=== PATIENT | male | born 1955 | race Caucasian/White ===

== ENCOUNTER → 2016-11-24 | Outpatient (CLI) | payer BC, OTHER | END | disposition home or self-care (01) | LOC: C.LABMFLN 09:53 | PROVIDERS: ATTEND Family Medicine | DX: J11.1 Influenza due to unidentified influenza virus with other respiratory manifestations (principal) ==

== ENCOUNTER → 2017-04-14 | Outpatient (CLI) | payer OTHER ==
[2017-04-14 13:49] LABS: ALT/SGPT 34 U/L (12-78); BLOOD UREA NITROGEN 18 mg/dl (7-18); BUN/CREATININE RATIO 17.8 (10-20); CARBON DIOXIDE 31 mmol/L (21-32); CHLORIDE 105 mmol/L (98-107); CHOLESTEROL 205 mg/dl (0-200); GLUCOSE 86 mg/dl (70-99); POTASSIUM 3.8 mmol/L (3.5-5.1); PROSTATE SPECIFIC ANTIGEN 0.868 ng/ml (0.000-4.000); SODIUM 142 mmol/L (136-145); TRIGLYCERIDES 79 mg/dl (0-150); VERY LOW DENSITY LIPOPROT CALC 16 mg/dl
[2017-04-14 13:53] LABS: HDL CHOLESTEROL 51 mg/dl; LDL CHOLESTEROL CALCULATED 138 mg/dl
== END | disposition home or self-care (01) ==
LOC: C.LABMFLN 10:22
PROVIDERS: ATTEND Family Medicine
DX: Z13.220 Encounter for screening for lipoid disorders (principal); Z13.1 Encounter for screening for diabetes mellitus; Z12.5 Encounter for screening for malignant neoplasm of prostate

== ENCOUNTER → 2017-11-18 | Outpatient (CLI) | payer OTHER ==
[~2017-11-18] MED LIST: CLOR7.5T14 PO; MULT-1027 PO; PRLSR20 PO; SUCR5SUS PO
[2017-11-18 17:40] LABS: HEMATOCRIT 46.8 % (42-52); HEMOGLOBIN 17.1 g/dL (14.0-18.0); MEAN CELL VOLUME 90.2 fL (80-100); MEAN CORPUSCULAR HEMOGLOBIN 32.9 pg (25-34); MEAN CORPUSCULAR HGB CONC 36.5 g/dl (32-36); MEAN PLATELET VOLUME 9.5 fL (7.4-10.4); PLATELET COUNT 212 K/uL (130-400); RED CELL DISTRIBUTION WIDTH CV 13.3 % (11.5-14.5); RED CELL DISTRIBUTION WIDTH SD 43.5 fL (36.4-46.3); WHITE BLOOD COUNT 6.26 K/uL (4.8-10.8)
[2017-11-18 18:10] LABS: ALT/SGPT 23 U/L (12-78); AST/SGOT 13 U/L (15-37); BLOOD UREA NITROGEN 11 mg/dl (7-18); CALCIUM 8.7 mg/dl (8.5-10.1); CARBON DIOXIDE 28 mmol/L (21-32); CREATININE 0.98 mg/dl (0.60-1.40); GLUCOSE 94 mg/dl (70-99); POTASSIUM 4.4 mmol/L (3.5-5.1); SODIUM 139 mmol/L (136-145)
[2017-11-18 18:12] LABS: ALKALINE PHOSPHATASE 99 U/L (45-117); TOTAL PROTEIN 7.4 gm/dl (6.4-8.2)
== END | disposition home or self-care (01) ==
LOC: C.LABMFLN 15:01
PROVIDERS: ATTEND Family Medicine
DX: K29.00 Acute gastritis without bleeding (principal)

== ENCOUNTER → 2017-11-30 | Day surgery (SDC) | payer OTHER ==
[~2017-11-30] VITALS: Ht 172.7 cm; Wt 70.5 kg
[~2017-11-30] MED LIST changes: +LIDOCAINE HCL 2% 2 ML VIAL (20MG/ML) ONE; +PROPOFOL IV EMULSION 10 MG/ML 20 ML VIAL IV ONE; +SODIUM CHLORIDE 0.9% 500ML 500 ML IV ONE
[2017-11-30 08:31] VITALS: Ht 172.7 cm; Wt 70.5 kg
--- NOTE | 2017-11-30 08:50 | Endo History and Physical ---
History & Physical Date of Service: Nov 30, 2017. Chief Complaint: Gastritis Referring Physician: Dr. Otoniel Mccullough History of Present Illness 62 yo CF who presents for EGD secondary to gastritis. Past Medical History Arthritis, Anxiety, Reflux, Depression Past Surgical History Hx Cardiac Surgery: No Hx Internal Defibrillator: No Hx Pacemaker: No Hx Abdominal Surgery: Yes (APPENDECTOMY) Hx of Implantable Prosthesis: No Hx Post-Op Nausea and Vomiting: No Hx Cancer Surgery: No Hx Thoracic Surgery: No Hx Orthopedic: No Hx Urinary Tract Surgery: No Family History Esophogeal CA Social History Smoking Status: Former Smoker Hx Substance Use: Yes (TRANXENE) Hx Alcohol Use: No Allergies Coded Allergies: Barium-containing Compounds (Verified Allergy, Intermediate, Hives, ) Current Medications Reported Home Medications Medications Dose Route/Sig Max Daily Dose Days Date Category Multi Vitamin (Multiple Vitamin) 1 Tab Tab 1 Tab PO DAILY 11/25/17 Reported Tranxene-T (Clorazepate Dipotassium) 7.5 Mg Tab 15 Mg PO DAILY PRN 11/25/17 Reported Carafate (Sucralfate) 1 Gm/10 Ml Susp 10 Ml PO QID 11/25/17 Reported Prilosec (Omeprazole) 20 Mg Capcr 40 Mg PO DAILY 11/25/17 Reported Vital Signs Weight (Kilograms): 70.5 Height (Feet): 5 Height (Inches): 8 Date Time Temp Pulse Resp B/P (MAP) Pulse Ox O2 Delivery O2 Flow Rate FiO2 11/30/17 08:30 36.3 75 18 144/98 (113) 98 Room Air Physical Exam General Appearance: WD/WN, no apparent distress Respiratory/Chest: Auscultation: breath sounds normal Cardiovascular: Heart Auscultation: RRR Abdomen: Bowel Sounds: normal Inspection & Palpation: soft, non-distended, no tenderness, guarding & rebound Assessment and Plan Assessment: 62 yo CF who presents for EGD secondary to gastritis. Plan: Proceed with EGD.
--- NOTE | 2017-11-30 09:41 | Discharge Instructions ---
Endoscopy Patient Instructions Date / Procedure(s) Performed Nov 30, 2017. EGD Allergy Information Coded Allergies: Barium-containing Compounds (Verified Allergy, Intermediate, Hives, ) Discharge Date / Findings Nov 30, 2017. Gastric antrum biopsies Distal esophageal biopsies Medication Instructions OK to resume all medications today as prescribed Reported Home Medications Medications Dose Route/Sig Max Daily Dose Days Date Category Multi Vitamin (Multiple Vitamin) 1 Tab Tab 1 Tab PO DAILY 11/25/17 Reported Tranxene-T (Clorazepate Dipotassium) 7.5 Mg Tab 15 Mg PO DAILY PRN 11/25/17 Reported Carafate (Sucralfate) 1 Gm/10 Ml Susp 10 Ml PO QID 11/25/17 Reported Prilosec (Omeprazole) 20 Mg Capcr 40 Mg PO DAILY 11/25/17 Reported Provider Instructions Activity Restrictions - No exercising or heavy lifting for 24 hours. - Do not drink alcohol the day of the procedure. - Do not drive a car or operate machinery until the day after the procedure. - Do not make any important decisions or sign important papers in 24 hours after the procedure. Following Day: - Return to full activity which may include returning to work/school. Diet Start your diet with liquids and light foods (jello, soup, juice, toast). Then eat your usual diet if not nauseated. Treatment For Common After Affects For mild abdominal pain, bloating, or excessive gas: - Rest - Eat lightly - Lie on right side Follow-Up Information Follow-up with DR KENDRA GARCIA as scheduled Anesthesia Information What You Should Know You have had a procedure that required some medicine to reduce anxiety and discomfort. This treatment is called moderate sedation. After receiving the treatment, you may be sleepy, but you will be able to breathe on your own. The effects of the treatment may last for several hours. Follow these instructions along with Activity/Diet recommendations noted above: * Do NOT do anything where dizziness or clumsiness would be dangerous. * Rest quietly at home today, then you can be up and about tomorrow. * Have a responsible person stay with you the rest of today. * You may have had an I.V. today. If so, you may take the dressing off later today. Recommendations Call your doctor if: * Trouble breathing * Continuous vomiting for more than 24 hours * Temperature above 101 degrees * Severe abdominal pain or bloating * Pain not relieved by pain medicine ordered * There is increased drainage or redness from any incision * A large amount of rectal bleeding greater than 2-3 tablespoons. (If you had a polyp/s removed or have hemorrhoids, a small amount of blood - from the rectum is to be expected.) * You have any unanswered questions or concerns. IN THE EVENT OF A SERIOUS EMERGENCY, GO TO THE NEAREST EMERGENCY ROOM Your discharge instructions were prepared by provider Rhys Nava. Patient Instructions Signature Page Raymond Little Patient (or Guardian) Signature/Date: I have read and understand the instructions given to me by my caregivers. Caregiver/RN/Doctor Signature/Date: The above-named patient and/or guardian has received patient instructions on this date. + Original Patient Signature Page (only) stays with chart. Please make copy for patient.
--- NOTE | 2017-11-30 09:54 | GI REPORT ---
Procedure Date: 11/30/2017 8:56 AM Procedure: Upper GI endoscopy Indications: Suspected acute gastritis Medicines: Monitored Anesthesia Care Complications: No immediate complications. Estimated Blood Loss: Estimated blood loss: none. Procedure: Pre-Anesthesia Assessment: - Prior to the procedure, a History and Physical was performed, and patient medications and allergies were reviewed. The patient's tolerance of previous anesthesia was also reviewed. The risks and benefits of the procedure and the sedation options and risks were discussed with the patient. All questions were answered, and informed consent was obtained. Prior Anticoagulants: The patient has taken no previous anticoagulant or antiplatelet agents. ASA Grade Assessment: I - A normal, healthy patient. After reviewing the risks and benefits, the patient was deemed in satisfactory condition to undergo the procedure. After obtaining informed consent, the endoscope was passed under direct vision. Throughout the procedure, the patient's blood pressure, pulse, and oxygen saturations were monitored continuously. The scope was introduced through the mouth, and advanced to the second part of duodenum. The upper GI endoscopy was accomplished without difficulty. The patient tolerated the procedure well. Findings: The Z-line was irregular. Biopsies were taken with a cold forceps for histology. The entire examined stomach was normal. Biopsies were taken with a cold forceps for Helicobacter pylori testing. The examined duodenum was normal. Impression: - Z-line irregular. Biopsied. - Normal stomach. Biopsied. - Normal examined duodenum. Recommendation: - Resume previous diet. - Continue present medications. - Await pathology results. - Return to primary care physician as previously scheduled. Rhys Nava DO 11/30/2017 9:53:52 AM This report has been signed electronically. Note Initiated On: 11/30/2017 8:56 AM I attest to the content of the Intraoperative Record and orders documented therein, exceptions below
[2017-11-30 10:13] VITALS: BP 117/82; PULSE 67; O2SAT 96
--- NOTE | 2017-11-30 10:34 | Anesthesiology Progress Note ---
Anesthesia Post Op Note Date & Time Nov 30, 2017 at 10:34 Vital Signs Pain Intensity: 0 Vital Signs Past 12 Hours Date Time Temp Pulse Resp B/P (MAP) Pulse Ox O2 Delivery O2 Flow Rate FiO2 11/30/17 10:13 67 18 117/82 (94) 96 Room Air 11/30/17 09:58 74 18 91/57 (68) 96 Room Air 11/30/17 09:42 36.6 72 18 93/55 (68) 95 Room Air 11/30/17 08:30 36.3 75 18 144/98 (113) 98 Room Air Notes Mental Status: alert / awake / arousable, participated in evaluation Pt Amnestic to Procedure: Yes Nausea / Vomiting: adequately controlled Pain: adequately controlled Airway Patency, RR, SpO2: stable & adequate BP & HR: stable & adequate Hydration State: stable & adequate Anesthetic Complications: no major complications apparent
== END | disposition home or self-care (01) ==
LOC: C.GI 08:09
PROVIDERS: ATTEND Internal Medicine
DX: K29.70 Gastritis, unspecified, without bleeding (principal); K20.9 Esophagitis, unspecified; Z90.49 Acquired absence of other specified parts of digestive tract; Z87.891 Personal history of nicotine dependence; Z80.0 Family history of malignant neoplasm of digestive organs

== ENCOUNTER 2018-04-25 23:33 | Emergency (ER) | payer OTHER ==
[~2018-04-25] VITALS: Ht 172.7 cm; Wt 71.5 kg
[~2018-04-25 23:33] MED LIST changes: -LIDOCAINE HCL 2% 2 ML VIAL (20MG/ML) ONE; +LUTE20TA PO; -PRLSR20 PO; -PROPOFOL IV EMULSION 10 MG/ML 20 ML VIAL IV ONE; +RANI150T85 PO; -SODIUM CHLORIDE 0.9% 500ML 500 ML IV ONE; -SUCR5SUS PO
[2018-04-25 23:40] VITALS: TEMP 36.7; Ht 172.7 cm; Wt 71.5 kg
[2018-04-26] MEDS ORDERED: KETOROLAC TROMETHAMINE 30 MG/ML VIAL IV STA (00:04)
[2018-04-26] MEDS ORDERED: SODIUM CHLORIDE 0.9% 1000ML 1,000 ML IV ONE (00:15)
[2018-04-26 00:18] LABS: BASO % 0.4 %; BASO ABS # 0.03 K/uL (0-0.2); EOS % 1.8 %; EOS ABS # 0.14 K/uL (0-0.5); HEMATOCRIT 48.5 % (42-52); HEMOGLOBIN 17.2 g/dL (14.0-18.0); IG# 0.05 K/uL (0.00-0.02); LYMPH % 35.2 %; LYMPH ABS # 2.81 K/uL (1.2-3.4); MEAN CELL VOLUME 90.7 fL (80-100); MEAN CORPUSCULAR HEMOGLOBIN 32.1 pg (25-34); MEAN CORPUSCULAR HGB CONC 35.5 g/dl (32-36); MEAN PLATELET VOLUME 9.1 fL (7.4-10.4); MONO % 8.1 %; MONO ABS # 0.65 K/uL (0.11-0.59); NEUT % 53.9 %; NEUT ABS # 4.31 K/uL (1.4-6.5); PLATELET COUNT 212 K/uL (130-400); RED CELL DISTRIBUTION WIDTH CV 13.4 % (11.5-14.5); RED CELL DISTRIBUTION WIDTH SD 43.8 fL (36.4-46.3); WHITE BLOOD COUNT 7.99 K/uL (4.8-10.8)
[2018-04-26] MEDS ORDERED: DICL50TA3 PO (00:22)
[2018-04-26 00:28] LABS: ALBUMIN 4.2 gm/dl (3.4-5.0); CALCIUM 8.5 mg/dl (8.5-10.1); CREATININE 0.99 mg/dl (0.60-1.40); POTASSIUM 3.7 mmol/L (3.5-5.1); TOTAL PROTEIN 7.5 gm/dl (6.4-8.2)
[2018-04-26 01:51] VITALS: BP 116/74; PULSE 79; O2SAT 97
--- NOTE | 2018-04-26 05:16 | EMERGENCY ROOM VISIT NOTE ---
History First contact with patient: 23:47 Chief Complaint: FLANK PAIN Stated Complaint: RT BACK PAIN,STOMACH PAIN,NAUSEA History of Present Illness The patient is a 62 year old male who presents to the Emergency Room with complaints of right upper quadrant abdominal pain for the past 4-5 weeks. The patient states the pain is intermittent in nature and does not appear to be improve or worsen with time of day or food. The patient does have a history of gastritis, but this feels different from that. He has not had fever or chills. He has been able to eat and drink as normal, although sometimes he does have some postprandial nausea. He is going to the bathroom as normal. His discomfort has been slowly increasing in severity over the past few weeks, and he states that he has a primary care physician appointment scheduled in 9 hours from now. He rates his current discomfort a 6/10. Review of Systems More than 10 systems were reviewed and otherwise negative with the exception of history of present illness. Past Medical/Surgical History Medical Problems: (1) Anxiety disorder (2) Arthritis (3) Depression (4) Gastroesophageal reflux (5) History of L4-5 microdiscectomy Surgical Problems: (1) History of appendectomy Family History No pertinent family history Social History Smoking Status: Former Smoker Marital Status: Occupation Status: disabled Current/Historical Medications Scheduled Lutein (Lutein), 20 MG PO DAILY Multiple Vitamin (Multi Vitamin), 1 TAB PO DAILY Scheduled PRN Clorazepate Dipotassium (Tranxene-T), 15 MG PO DAILY PRN for Anxiety Diclofenac (Voltaren), Unknown Dose PO DIRECTED PRN for Pain Physical Exam Vital Signs Date Time Temp Pulse Resp B/P (MAP) Pulse Ox O2 Delivery O2 Flow Rate FiO2 04/26/18 01:51 79 16 116/74 97 04/26/18 01:08 80 16 114/70 97 Room Air 04/25/18 23:40 36.7 80 18 163/106 97 Room Air Physical Exam VITALS: Vitals are noted on the nurse's note and reviewed by myself. Vital signs stable. GENERAL: Well-developed, well-nourished, white male, who is in no acute distress and resting comfortably. Patient is cooperative with the examination. EYES: Pupils equal round and reactive to light and accommodation. Conjunctivae without injection, sclerae without icterus. Extraocular movements intact. NECK: Supple without nuchal rigidity. No lymphadenopathy. No thyromegaly. Cervical spine is nontender. HEART: Regular rate and rhythm without murmurs gallops or rubs. LUNGS: Clear to auscultation bilaterally without wheezes, rales or rhonchi. No retractions or accessory muscle use. ABDOMEN: Positive normal bowel sounds x 4. Soft, nontender, without masses or organomegaly. No guarding or rebound tenderness. Medical Decision & Procedures ER Provider Diagnostic Interpretation: Preliminary Findings Only See Final Report For Complete Findings US RUQ: The gallbladder is partially contracted. No gallstones. No evidence of GB wall thickening or pericholecystic fluid. No biliary dilatation. Liver, right kidney unremarkable. The portal vein is unremarkable. No free fluid. The pancreas is obscured by bowel gas pattern. Laboratory Results 04/26/18 00:02 Red Blood Count 5.35, Mean Corpuscular Volume 90.7, Mean Corpuscular Hemoglobin 32.1, Mean Corpuscular Hemoglobin Concent 35.5, Mean Platelet Volume 9.1, Neutrophils (%) (Auto) 53.9, Lymphocytes (%) (Auto) 35.2, Monocytes (%) (Auto) 8.1, Eosinophils (%) (Auto) 1.8, Basophils (%) (Auto) 0.4, Neutrophils # (Auto) 4.31, Lymphocytes # (Auto) 2.81, Monocytes # (Auto) 0.65, Eosinophils # (Auto) 0.14, Basophils # (Auto) 0.03 04/26/18 00:02 Test 04/25/18 23:55 04/26/18 00:02 Urine Color YELLOW Urine Appearance CLEAR (CLEAR) Urine pH 5.5 (4.5-7.5) Urine Specific [place] 1.003 (1.000-1.030) Urine Protein NEG (NEG) Urine Glucose (UA) NEG (NEG) Urine Ketones NEG (NEG) Urine Occult Blood NEG (NEG) Urine Nitrite NEG (NEG) Urine Bilirubin NEG (NEG) Urine Urobilinogen NEG (NEG) Urine Leukocyte Esterase NEG (NEG) White Blood Count 7.99 K/uL (4.8-10.8) Red Blood Count 5.35 M/uL (4.7-6.1) Hemoglobin 17.2 g/dL (14.0-18.0) Hematocrit 48.5 % (42-52) Mean Corpuscular Volume 90.7 fL (80-100) Mean Corpuscular Hemoglobin 32.1 pg (25-34) Mean Corpuscular Hemoglobin Concent 35.5 g/dl (32-36) Platelet Count 212 K/uL (130-400) Mean Platelet Volume 9.1 fL (7.4-10.4) Neutrophils (%) (Auto) 53.9 % Lymphocytes (%) (Auto) 35.2 % Monocytes (%) (Auto) 8.1 % Eosinophils (%) (Auto) 1.8 % Basophils (%) (Auto) 0.4 % Neutrophils # (Auto) 4.31 K/uL (1.4-6.5) Lymphocytes # (Auto) 2.81 K/uL (1.2-3.4) Monocytes # (Auto) 0.65 K/uL (0.11-0.59) Eosinophils # (Auto) 0.14 K/uL (0-0.5) Basophils # (Auto) 0.03 K/uL (0-0.2) RDW Standard Deviation 43.8 fL (36.4-46.3) RDW Coefficient of Variation 13.4 % (11.5-14.5) Immature Granulocyte % (Auto) 0.6 % Immature Granulocyte # (Auto) 0.05 K/uL (0.00-0.02) Anion Gap 7.0 mmol/L (3-11) Est Creatinine Clear Calc Drug Dose 76.7 ml/min Estimated GFR () 95.5 Estimated GFR (Non- 82.4 BUN/Creatinine Ratio 9.6 (10-20) Calcium Level 8.5 mg/dl (8.5-10.1) Total Bilirubin 1.5 mg/dl (0.2-1) Aspartate Amino Transf (AST/SGOT) 18 U/L (15-37) Alanine Aminotransferase (ALT/SGPT) 35 U/L (12-78) Alkaline Phosphatase 94 U/L (45-117) Total Protein 7.5 gm/dl (6.4-8.2) Albumin 4.2 gm/dl (3.4-5.0) Globulin 3.3 gm/dl (2.5-4.0) Albumin/Globulin Ratio 1.3 (0.9-2) Amylase Level 70 U/L (25-115) Lipase 124 U/L (73-393) Medications Administered Medications (Trade) Dose Ordered Sig/Ramon Route Start Time Stop Time Status Last Admin Dose Admin Sodium Chloride 1,000 ml @ 999 mls/hr Q1H1M ONCE IV 04/26/18 00:15 04/26/18 01:15 DC 04/26/18 00:14 999 MLS/HR Ketorolac Tromethamine (Toradol Inj) 30 mg NOW STAT IV 04/26/18 00:04 04/26/18 00:06 DC 04/26/18 00:14 30 MG ED Course Physical exam and history were performed. Nursing notes, EMR, and Medication List were personally reviewed. Patient appears to have intermittent right upper quadrant abdominal pain. The patient does not appear toxic on examination, and he has no reproducible tenderness in this area. IV access was established and labs were obtained. The patient was hydrated and medicated as above. Ultrasound was performed. The patient's blood work is as above and was reviewed. He does not have a significantly elevated white blood cell count, gross anemia, bandemia, or significant electrolyte imbalance. Lipase and transaminases are not diagnostic. Ultrasound is as above and does not reveal biliary or other distinct etiology to describe the patient's symptoms. On reevaluation the patient continues to be very comfortable. His abdomen remains soft on repeat exam, and he certainly does not seem to have an acute surgical abdomen. I discussed options of care with the patient. He certainly could have biliary colic, and may do well with an outpatient HIDA scan. The patient does have an appointment with his primary care physician in a few hours. I recommend that he keep that appointment for further care and management. He was otherwise invited back to the ER with any new, worsening, or concerning symptoms. The chart was completed utilizing [employer] Speech Voice Recognition Software. Grammatical errors, random word insertions, pronoun errors, and incomplete sentences are an occasional consequence of this system due to software limitations, ambient noise, and hardware issues. Any formal questions or concerns about the content, text, or information contained within the body of this dictation should be directly addressed to the provider for clarification. . Medical Decision Differential diagnosis: Etiologies such as appendicitis, diverticulitis, PUD, biliary pathology, UTI, pancreatitis, obstruction, mesenteric ischemia, aortic pathology, infections, inflammatory bowel disease, renal colic, as well as others were entertained. Impression Primary Impression: Colicky RUQ abdominal pain Departure Information Dispostion Home / Self-Care Condition GOOD Forms HOME CARE DOCUMENTATION FORM, IMPORTANT VISIT INFORMATION Patient Instructions My [facility] Additional Instructions You were seen and evaluated today on an emergency basis only. This is not a substitute for, or an effort to provide, complete comprehensive medical care. It is not possible to recognize and treat all injuries or illnesses in a single emergency department visit. For this reason it is recommended that you followup with your primary care physician as scheduled for ongoing care and evaluation. Blood work and right upper quadrant ultrasound performed today in the ER do not show acute findings to explain your symptoms. You may want to consider out patient HIDA scan if symptoms persist. Discussed this with your primary care physician. Drink plenty fluids and remain well-hydrated. You are welcome to return to the emergency department anytime with new, worsening, or concerning symptoms.
--- NOTE | 2018-04-26 07:02 | DIAGNOSTIC IMAGING REPORT ---
ULTRASOUND RIGHT UPPER QUADRANT ABDOMEN CLINICAL HISTORY: Right upper quadrant abdominal pain. COMPARISON STUDY: No priors. TECHNIQUE: Real-time, grayscale, and color flow sonography of the right upper quadrant of the abdomen was performed. Images are reviewed in the transverse and longitudinal planes. FINDINGS: Liver: The liver is normal in size and echotexture. There is no intrahepatic biliary ductal dilatation. The main portal vein is patent. Gallbladder: The gallbladder is normal in appearance. No gallstones are identified. There is no gallbladder wall thickening or pericholecystic fluid. A sonographic Talavera's sign could not be assessed as the patient received analgesia. The common bile duct measures up to 0.4 cm in diameter. Pancreas: Visualized portions of the pancreatic head are normal in appearance. The majority of the pancreas was not well visualized due to overlying bowel gas. Right kidney: Survey images of the right kidney demonstrate normal size and echotexture. There is no hydronephrosis. Ascites: None. IMPRESSION: Unremarkable sonographic assessment of the upper quadrant. No gallstones are identified. Electronically signed by: Watson Balderas M.D. 04/26/2018 7:01 AM Dictated Date/Time: 04/26/2018 7:00 AM
== END 2018-04-26 01:51 | disposition home or self-care (01) ==
LOC: C.EDB 23:34 → C.EDC 04-26 01:51
DX: R10.11 Right upper quadrant pain (principal); Z87.19 Personal history of other diseases of the digestive system; Z87.891 Personal history of nicotine dependence

== ENCOUNTER → 2018-05-02 | Outpatient (CLI) | payer OTHER ==
[~2018-05-02] MED LIST changes: +DICL50TA3 PO; -RANI150T85 PO; +SINCALIDE INJ 1.4 MCG in SODIUM CHLORIDE 0.9% 100ML 100 ML IV ONE
--- NOTE | 2018-05-02 10:13 | DIAGNOSTIC IMAGING REPORT ---
HEPATOBILIARY HIDA IMAGING HISTORY: Pain. Nausea. R10.11 Right upper quadrant abdominal pain of unknown etiology COMPARISON: None. TECHNIQUE: Immediately following the intravenous administration of 5.5 mCi Tc-99m Choletec, dynamic anterior abdominal imaging was performed. FINDINGS: Uniform hepatic tracer accumulation is shown. Prompt intrahepatic biliary excretion is seen. The gallbladder, common bile duct, and small bowel are all visualized by 20 minutes. This appearance represents the normal sequence of biliary excretion. IMPRESSION: No evidence for cystic duct obstruction. Normal study. Low ejection fraction at 25%. The above report was generated using voice recognition software. It may contain grammatical, syntax or spelling errors. Electronically signed by: Sriram Condon M.D. 05/02/2018 10:12 AM Dictated Date/Time: 05/02/2018 10:10 AM
== END | disposition home or self-care (01) ==
LOC: C.NUCL 07:32
PROVIDERS: ATTEND Family Medicine
DX: R10.11 Right upper quadrant pain (principal)